=== PATIENT | female | born 1945 | race Caucasian/White ===

== ENCOUNTER 2017-11-06 15:18 | Inpatient (IN) | payer MEDICARE, OTHER, BC ==
[2017-11-06 20:21] LABS: AADO2 Arterial 60.1 mmHg (7.0-24.0); Arterial Base Excess -5.3 mmol/L (-3.0-3); Arterial Blood Gas Oxygen Sat 88.5 mmHG (95.0-100.0); Arterial COHb 0.3 % (0.0-3.0); Arterial Fraction of Oxyhgb 88.1 % (93.0-99.0); Arterial HCO3 18.7 mmol/L (22.0-26.0); Arterial MetHb 0.2 % (0.0-1.5); Arterial Total Hemglobin 10.1 g/dl (12.0-18.0); Arterial pCO2 31.2 mmhg (35-45); MODE ROOM AIR; Site Right Brachial
[2017-11-06] MEDS ORDERED: HYDROCODONE/APAP (5/325) TAB PO (21:00)
[2017-11-06] MEDS ORDERED: NACL 0.9% 3 ML SYG IV (21:00)
[2017-11-06] MEDS ORDERED: DOCUSATE SODIUM 100 MG CAP PO (21:00)
[2017-11-06 21:14] LABS: ABNORMAL IP MESSAGE 1; HEMATOCRIT 28.1 % (37.0-47.0); MEAN CORPUSCULAR HEMOGLOBIN 31.6 pg (29.0-33.0); MEAN CORPUSCULAR VOLUME 98.6 fl (82.0-101.0); MEAN PLATELET VOLUME 9.2 fl (7.4-10.4); NUCLEATED RED BLOOD CELLS% 0.6 /100WBC (0.0-0.0); PLATELET COUNT 311 10^3/UL (140-415); RED BLOOD COUNT 2.85 10^6/ul (4.20-5.40)
[2017-11-06 21:14] LABS: WHITE BLOOD COUNT 12.4 10^3/ul (4.8-10.8)
[2017-11-06 21:29] LABS: INR 1.01; PROTIME 13.4 Sec (11.9-14.9)
[2017-11-06 21:32] LABS: ALANINE AMINOTRANSFERASE 32 IU/L (13-69); ALBUMIN 3.5 g/dl (3.3-4.9); ALBUMIN/GLOBULIN RATIO 1.12; ALKALINE PHOSPHATASE 141 IU/L (42-121); ANION GAP 23 (8-16); ASPARTATE AMINO TRANSFERASE 40 IU/L (15-46); BILIRUBIN,INDIRECT 0.3 mg/dl (0-1.1); BILIRUBIN,TOTAL 0.3 mg/dl (0.2-1.3); BLOOD UREA NITROGEN 65 mg/dl (7-20); CALCIUM 8.8 mg/dl (8.4-10.2); CARBON DIOXIDE 19 mmol/L (21-31); CHLORIDE 104 mmol/L (97-110); CREATININE 2.09 mg/dl (0.44-1.00); GLUCOSE 277 mg/dl (70-220); LIPASE 187 U/L (23-300); POTASSIUM 4.2 mmol/L (3.5-5.1); TOTAL PROTEIN 6.6 g/dl (6.1-8.1)
[2017-11-06 21:35] LABS: POSITIVE DIFF @See below; SODIUM 142 mmol/L (135-144)
[2017-11-06 21:36] LABS: ADD MAN DIFF? YES
[2017-11-06 21:44] LABS: B-TYPE NATRIURETIC PEPTIDE 18600 PG/ML (0-125)
[2017-11-06 21:53] LABS: TROPONIN-I 0.288 ng/ml (0.00-0.12)
[2017-11-06 21:55] LABS: ADD UMIC NO; UR ASCORBIC ACID NEGATIVE (NEGATIVE); UR BILIRUBIN (Dip) NEGATIVE (NEGATIVE); UR BLOOD (Dip) NEGATIVE (NEGATIVE); UR CLARITY CLEAR (CLEAR); UR COLOR YELLOW (YELLOW); UR GLUCOSE (Dip) 1+ mg/dL (NEGATIVE); UR KETONES (Dip) TRACE mg/dL (NEGATIVE); UR LEUKOCYTE ESTERASE (Dip) NEGATIVE Leu/ul (NEGATIVE); UR NITRITE (Dip) NEGATIVE (NEGATIVE); UR SPECIFIC GRAVITY (Dip) 1.012 (1.003-1.030); UR TOTAL PROTEIN (Dip) NEGATIVE (NEGATIVE); UR UROBILINOGEN (Dip) NEGATIVE (NEGATIVE)
[2017-11-06 21:57] LABS: BAND NEUTROPHILS #M 0.1 10^3/ul (0.0-0.6); BAND NEUTROPHILS % (M) 1 % (0-4); BASOPHIL #M 0.1 10^3/ul (0.0-0.0); BASOPHILS % (M) 1 % (0-2); EOSINOPHILS % (M) 3 % (0-7); ERYTHROBLAST% (NRBC) (M) 1 % (0-0); GIANT THROMBO% (M) 1 % (0-0); LYMPHOCYTES #M 1.6 10^3/ul (0.8-2.9); LYMPHOCYTES % (M) 13 % (15-51); MONOCYTE #M 0.4 10^3/ul (0.3-0.9); MONOCYTES % (M) 4 % (0-11); PLATELET ESTIMATE NORMAL; POLYCHROMASIA 2+ (0-0); SEG NEUT #M 9.7 10^3/ul (1.7-7.5); SEGMENTED NEUTROPHILS (M) % 78 % (39-77)
[2017-11-06] MEDS ORDERED: DEXTROSE 50% 50 ML SYRINGE IV ×2 (22:00)
[2017-11-06] MEDS ORDERED: GLUCAGON 1 MG INJ IM (22:00)
[2017-11-06] MEDS ORDERED: GLUCOSE GEL 15 GRAM TUBE BUCCAL (22:00)
[2017-11-06] MEDS ORDERED: GLUCOSE GEL 15 GRAM TUBE PO ×2 (22:00)
[2017-11-06 23:17] LABS: THYROID STIMULATING HORMONE 0.684 MIU/L (0.465-4.680)
[2017-11-06] MEDS: ASPIRIN 81 MG TAB PO (23:37)
[2017-11-06] MEDS: FUROSEMIDE 40 MG INJ IV (23:38)
[2017-11-06] MEDS: AMLODIPINE 5 MG TAB PO (23:38)
[2017-11-06] MEDS: HEPARIN 5,000 UNIT/0.5 ML VIAL SC (23:41)
[2017-11-07] MEDS: POTASSIUM CHLORIDE (SR) 10 MEQ TAB PO (01:03)
[2017-11-07] MEDS: ACCU-CHEK XX (01:59)
[2017-11-07] MEDS: PANTOPRAZOLE (EC) 40 MG TAB PO (05:33)
[2017-11-07] MEDS: HEPARIN 5,000 UNIT/0.5 ML VIAL SC ×3 (05:38→21:45)
[2017-11-07 06:53] LABS: ADD MAN DIFF? NO
[2017-11-07 06:57] LABS: WHITE BLOOD COUNT 10.4 10^3/ul (4.8-10.8)
[2017-11-07 06:57] LABS: ABNORMAL IP MESSAGE 1; BASOPHIL # 0.1 10^3/ul (0.0-0.1); BASOPHILS % 0.8 % (0.0-2.0); EOSINOPHILS # 0.4 10^3/ul (0.0-0.5); HEMATOCRIT 26.9 % (37.0-47.0); HEMOGLOBIN 8.7 g/dl (12.0-16.0); LYMPHOCYTES % 9.4 % (15.0-51.0); MEAN CORPUSCULAR HEMOGLOBIN 31.6 pg (29.0-33.0); MEAN CORPUSCULAR HGB CONC 32.3 g/dl (32.0-37.0); MEAN CORPUSCULAR VOLUME 97.8 fl (82.0-101.0); MONOCYTE # 0.7 10^3/ul (0.3-0.9); MONOCYTES % 6.6 % (0.0-11.0); NEUTROPHIL # 7.6 10^3/ul (1.6-7.5); NEUTROPHILS % 73.4 % (39.0-77.0); NUCLEATED RED BLOOD CELLS # 0.1 10^3/ul (0.0-0.0); NUCLEATED RED BLOOD CELLS% 0.8 /100WBC (0.0-0.0); PLATELET COUNT 289 10^3/UL (140-415); RED BLOOD COUNT 2.75 10^6/ul (4.20-5.40); RED CELL DISTRIBUTION WIDTH 15.3 % (11.5-14.5)
[2017-11-07 07:05] LABS: POSITIVE DIFF @See below
[2017-11-07] MEDS: LEVOTHYROXINE 75 MCG TAB PO (07:17)
[2017-11-07 07:19] LABS: ANION GAP 19 (8-16); BLOOD UREA NITROGEN 63 mg/dl (7-20); CALCIUM 8.8 mg/dl (8.4-10.2); CARBON DIOXIDE 24 mmol/L (21-31); CHLORIDE 105 mmol/L (97-110); CREATININE 2.05 mg/dl (0.44-1.00); GLUCOSE 220 mg/dl (70-220); MAGNESIUM 2.3 mg/dl (1.7-2.5); PHOSPHORUS 3.3 mg/dl (2.5-4.9); POTASSIUM 4.1 mmol/L (3.5-5.1); SODIUM 144 mmol/L (135-144)
[2017-11-07 07:24] LABS: IRON 41 ug/dl (35-150)
[2017-11-07 07:31] LABS: TROPONIN-I 0.269 ng/ml (0.00-0.12)
[2017-11-07 07:33] LABS: % IRON SATURATION 17 % SAT (22-52); TOTAL IRON BINDING CAPACITY 239 ug/dl (241-421)
[2017-11-07 08:12] LABS: HEMOGLOBIN A1C 7.8 % (0-5.9)
[2017-11-07] MEDS: INSULIN ASPART [NOVOLOG] 3 ML PEN SC ×3 (08:17→17:11)
[2017-11-07] MEDS: LINAGLIPTIN 5 MG TABLET PO (08:18)
[2017-11-07] MEDS: AMLODIPINE 5 MG TAB PO ×2 (08:18→20:20)
[2017-11-07] MEDS ORDERED: FUROSEMIDE 100 MG INJ IV (10:30)
[2017-11-07] MEDS: SOD FERRIC GLUC COMPLX 125 MG in SOD CHLORIDE 0.9% 100 ML IVPB (11:48)
[2017-11-07] MEDS: POTASSIUM CHLORIDE (SR) 20 MEQ TAB PO ×2 (11:48→20:19)
[2017-11-07] MEDS: INSULIN GLARGINE [LANtus] 3 ML PEN SC ×2 (14:47→23:50)
[2017-11-07] MEDS: EPOETIN 10000 UNITS/ML (NON ESRD/NON ONCOLOGY) SC (16:18)
[2017-11-07] MEDS ORDERED: EPOETIN 10000 UNITS/ML (NON ESRD/NON ONCOLOGY) SC (17:00)
[2017-11-07] MEDS: FUROSEMIDE 40 MG INJ IV (17:10)
[2017-11-07] MEDS: ATORVASTATIN 10 MG TAB PO (20:19)
[2017-11-07] MEDS: NEOMYC/POLYMYX/BACIT 30 GM OINT TOP (21:44)
[2017-11-07] MEDS ORDERED: PENDING SANTYL ORDER FOR WOUND CARE XX (22:00)
[2017-11-07] MEDS ORDERED: INSULIN GLARGINE [LANtus] 3 ML PEN SC (23:50)
[2017-11-08 00:27] LABS: CREATININE,URINE RANDOM 96.81 mg/dl (20-320); PROTEIN/CREAT RATIO 0.16 RATIO
[2017-11-08] MEDS: ACCU-CHEK XX (02:00)
[2017-11-08] MEDS: LEVOTHYROXINE 75 MCG TAB PO (06:25)
[2017-11-08] MEDS: PANTOPRAZOLE (EC) 40 MG TAB PO (06:25)
[2017-11-08] MEDS: FUROSEMIDE 40 MG INJ IV ×2 (06:26→17:34)
[2017-11-08] MEDS: HEPARIN 5,000 UNIT/0.5 ML VIAL SC ×3 (06:39→21:18)
[2017-11-08 07:58] LABS: ADD MAN DIFF? NO
[2017-11-08] MEDS: INSULIN ASPART [NOVOLOG] 3 ML PEN SC ×4 (08:02→23:24)
[2017-11-08 08:17] LABS: WHITE BLOOD COUNT 12.3 10^3/ul (4.8-10.8)
[2017-11-08 08:17] LABS: BASOPHIL # 0.1 10^3/ul (0.0-0.1); BASOPHILS % 0.6 % (0.0-2.0); EOSINOPHILS # 0.3 10^3/ul (0.0-0.5); EOSINOPHILS % 2.4 % (0.0-7.0); HEMATOCRIT 28.2 % (37.0-47.0); HEMOGLOBIN 8.9 g/dl (12.0-16.0); LYMPHOCYTES # 1.4 10^3/ul (0.8-2.9); MEAN CORPUSCULAR HEMOGLOBIN 31.3 pg (29.0-33.0); MEAN CORPUSCULAR HGB CONC 31.6 g/dl (32.0-37.0); MEAN CORPUSCULAR VOLUME 99.3 fl (82.0-101.0); MEAN PLATELET VOLUME 9.6 fl (7.4-10.4); MONOCYTE # 0.9 10^3/ul (0.3-0.9); MONOCYTES % 7.3 % (0.0-11.0); NEUTROPHIL # 9.1 10^3/ul (1.6-7.5); NEUTROPHILS % 74.1 % (39.0-77.0); NUCLEATED RED BLOOD CELLS # 0.1 10^3/ul (0.0-0.0); NUCLEATED RED BLOOD CELLS% 0.5 /100WBC (0.0-0.0); PLATELET COUNT 330 10^3/UL (140-415); RED BLOOD COUNT 2.84 10^6/ul (4.20-5.40); RED CELL DISTRIBUTION WIDTH 16.2 % (11.5-14.5)
[2017-11-08 08:30] LABS: ANION GAP 14 (8-16); BLOOD UREA NITROGEN 71 mg/dl (7-20); CALCIUM 8.7 mg/dl (8.4-10.2); CARBON DIOXIDE 28 mmol/L (21-31); CHLORIDE 104 mmol/L (97-110); CREATININE 2.14 mg/dl (0.44-1.00); GLUCOSE 155 mg/dl (70-220); MAGNESIUM 2.1 mg/dl (1.7-2.5); PHOSPHORUS 3.1 mg/dl (2.5-4.9); POTASSIUM 4.7 mmol/L (3.5-5.1); SODIUM 141 mmol/L (135-144)
[2017-11-08] MEDS: AMLODIPINE 5 MG TAB PO ×2 (08:53→21:15)
[2017-11-08] MEDS: POTASSIUM CHLORIDE (SR) 20 MEQ TAB PO ×2 (08:54→21:15)
[2017-11-08] MEDS: LINAGLIPTIN 5 MG TABLET PO (08:54)
[2017-11-08] MEDS: ASPIRIN 81 MG TAB PO (08:55)
[2017-11-08 10:11] LABS: OCCULT BLOOD STOOL NEGATIVE (NEGATIVE)
[2017-11-08] MEDS: NEOMYC/POLYMYX/BACIT 30 GM OINT TOP (10:19)
[2017-11-08] MEDS: SOD FERRIC GLUC COMPLX 125 MG in SOD CHLORIDE 0.9% 100 ML IVPB (10:20)
[2017-11-08 15:34] LABS: B-TYPE NATRIURETIC PEPTIDE 12500 PG/ML (0-125)
[2017-11-08 16:41] LABS: OCCULT BLOOD STOOL NEGATIVE (NEGATIVE)
[2017-11-08] MEDS: ATORVASTATIN 10 MG TAB PO (21:19)
[2017-11-08] MEDS: INSULIN GLARGINE [LANtus] 3 ML PEN SC (21:56)
[2017-11-09] MEDS: ACCU-CHEK XX (02:51)
[2017-11-09] MEDS: FUROSEMIDE 40 MG INJ IV ×2 (06:27→17:51)
[2017-11-09] MEDS: LEVOTHYROXINE 75 MCG TAB PO (06:27)
[2017-11-09] MEDS: PANTOPRAZOLE (EC) 40 MG TAB PO (06:27)
[2017-11-09] MEDS: HEPARIN 5,000 UNIT/0.5 ML VIAL SC ×3 (06:41→21:41)
[2017-11-09] MEDS: INSULIN ASPART [NOVOLOG] 3 ML PEN SC ×4 (07:53→21:37)
[2017-11-09 07:55] LABS: ABNORMAL IP MESSAGE 1; HEMATOCRIT 27.1 % (37.0-47.0); HEMOGLOBIN 8.7 g/dl (12.0-16.0); MEAN CORPUSCULAR HEMOGLOBIN 31.8 pg (29.0-33.0); MEAN CORPUSCULAR HGB CONC 32.1 g/dl (32.0-37.0); MEAN CORPUSCULAR VOLUME 98.9 fl (82.0-101.0); MEAN PLATELET VOLUME 9.8 fl (7.4-10.4); NUCLEATED RED BLOOD CELLS% 0.6 /100WBC (0.0-0.0); PLATELET COUNT 331 10^3/UL (140-415); RED BLOOD COUNT 2.74 10^6/ul (4.20-5.40); RED CELL DISTRIBUTION WIDTH 16.4 % (11.5-14.5)
[2017-11-09 07:55] LABS: WHITE BLOOD COUNT 11.3 10^3/ul (4.8-10.8)
[2017-11-09 08:03] LABS: ADD MAN DIFF? YES; POSITIVE DIFF @See below
[2017-11-09 08:43] LABS: ALANINE AMINOTRANSFERASE 38 IU/L (13-69); ALBUMIN 3.2 g/dl (3.3-4.9); ALBUMIN/GLOBULIN RATIO 1.18; ALKALINE PHOSPHATASE 117 IU/L (42-121); ANION GAP 15 (8-16); ASPARTATE AMINO TRANSFERASE 33 IU/L (15-46); BILIRUBIN,INDIRECT 0.2 mg/dl (0-1.1); BILIRUBIN,TOTAL 0.2 mg/dl (0.2-1.3); BLOOD UREA NITROGEN 71 mg/dl (7-20); CALCIUM 8.3 mg/dl (8.4-10.2); CARBON DIOXIDE 27 mmol/L (21-31); CHLORIDE 101 mmol/L (97-110); CREATININE 2.13 mg/dl (0.44-1.00); GLUCOSE 183 mg/dl (70-220); POTASSIUM 4.4 mmol/L (3.5-5.1); SODIUM 139 mmol/L (135-144); TOTAL PROTEIN 5.9 g/dl (6.1-8.1)
[2017-11-09 08:52] LABS: MAGNESIUM 1.9 mg/dl (1.7-2.5)
[2017-11-09 08:52] LABS: PHOSPHORUS 3.7 mg/dl (2.5-4.9)
[2017-11-09 08:53] LABS: ALANINE AMINOTRANSFERASE 35 IU/L (13-69); ALBUMIN 2.9 g/dl (3.3-4.9); ALKALINE PHOSPHATASE 109 IU/L (42-121); ASPARTATE AMINO TRANSFERASE 33 IU/L (15-46); TOTAL PROTEIN 5.6 g/dl (6.1-8.1)
[2017-11-09] MEDS: ASPIRIN 81 MG TAB PO (09:04)
[2017-11-09] MEDS: NEOMYC/POLYMYX/BACIT 30 GM OINT TOP (09:04)
[2017-11-09] MEDS: LINAGLIPTIN 5 MG TABLET PO (09:04)
[2017-11-09] MEDS: POTASSIUM CHLORIDE (SR) 20 MEQ TAB PO (09:05)
[2017-11-09] MEDS: AMLODIPINE 5 MG TAB PO ×2 (09:05→21:31)
[2017-11-09 10:10] LABS: ANISOCYTOSIS 1+ (0-0); BAND NEUTROPHILS #M 0.5 10^3/ul (0.0-0.6); BAND NEUTROPHILS % (M) 5 % (0-4); EOSINOPHILS % (M) 3 % (0-7); LYMPHOCYTES #M 1.3 10^3/ul (0.8-2.9); LYMPHOCYTES % (M) 12 % (15-51); MONOCYTE #M 0.4 10^3/ul (0.3-0.9); MONOCYTES % (M) 4 % (0-11); MYELOCYTES #M 0.2 10^3/ul (0.0-0.0); MYELOCYTES % (M) 2 % (0-0); PLATELET ESTIMATE NORMAL; POLYCHROMASIA 1+ (0-0); SEG NEUT #M 8.4 10^3/ul (1.7-7.5); SEGMENTED NEUTROPHILS (M) % 74 % (39-77); SMUDGE%M 5 % (0-0)
[2017-11-09] MEDS: SOD FERRIC GLUC COMPLX 125 MG in SOD CHLORIDE 0.9% 100 ML IVPB (10:42)
[2017-11-09] MEDS: ATORVASTATIN 10 MG TAB PO (21:31)
[2017-11-09] MEDS: INSULIN GLARGINE [LANtus] 3 ML PEN SC (21:36)
[2017-11-10] MEDS: ACCU-CHEK XX (02:00)
[2017-11-10] MEDS: PANTOPRAZOLE (EC) 40 MG TAB PO (06:30)
[2017-11-10] MEDS: LEVOTHYROXINE 75 MCG TAB PO (06:30)
[2017-11-10] MEDS: FUROSEMIDE 40 MG INJ IV ×2 (06:30→17:27)
[2017-11-10] MEDS: HEPARIN 5,000 UNIT/0.5 ML VIAL SC ×3 (06:36→22:20)
[2017-11-10 06:55] LABS: ABNORMAL IP MESSAGE 1; HEMOGLOBIN 9.1 g/dl (12.0-16.0); MEAN CORPUSCULAR HEMOGLOBIN 32.3 pg (29.0-33.0); MEAN CORPUSCULAR HGB CONC 32.5 g/dl (32.0-37.0); MEAN CORPUSCULAR VOLUME 99.3 fl (82.0-101.0); MEAN PLATELET VOLUME 9.5 fl (7.4-10.4); NUCLEATED RED BLOOD CELLS% 0.6 /100WBC (0.0-0.0); PLATELET COUNT 320 10^3/UL (140-415); RED BLOOD COUNT 2.82 10^6/ul (4.20-5.40); RED CELL DISTRIBUTION WIDTH 16.9 % (11.5-14.5)
[2017-11-10 06:55] LABS: WHITE BLOOD COUNT 9.5 10^3/ul (4.8-10.8)
[2017-11-10 07:13] LABS: POSITIVE DIFF @See below
[2017-11-10 07:14] LABS: ADD MAN DIFF? YES
[2017-11-10] MEDS: INSULIN ASPART [NOVOLOG] 3 ML PEN SC ×4 (07:25→20:20)
[2017-11-10 07:37] LABS: B-TYPE NATRIURETIC PEPTIDE 7820 PG/ML (0-125)
[2017-11-10 07:55] LABS: ALANINE AMINOTRANSFERASE 35 IU/L (13-69); ALBUMIN 3.1 g/dl (3.3-4.9); ALBUMIN/GLOBULIN RATIO 1.19; ALKALINE PHOSPHATASE 107 IU/L (42-121); ANION GAP 13 (8-16); ASPARTATE AMINO TRANSFERASE 24 IU/L (15-46); BILIRUBIN,INDIRECT 0.1 mg/dl (0-1.1); BILIRUBIN,TOTAL 0.1 mg/dl (0.2-1.3); BLOOD UREA NITROGEN 73 mg/dl (7-20); CALCIUM 8.6 mg/dl (8.4-10.2); CARBON DIOXIDE 30 mmol/L (21-31); CHLORIDE 101 mmol/L (97-110); CREATININE 2.23 mg/dl (0.44-1.00); GLUCOSE 140 mg/dl (70-220); POTASSIUM 4.6 mmol/L (3.5-5.1); SODIUM 139 mmol/L (135-144); TOTAL PROTEIN 5.7 g/dl (6.1-8.1)
[2017-11-10] MEDS: POTASSIUM CHLORIDE (SR) 20 MEQ TAB PO (08:53)
[2017-11-10] MEDS: AMLODIPINE 5 MG TAB PO ×2 (08:53→20:28)
[2017-11-10] MEDS: NEOMYC/POLYMYX/BACIT 30 GM OINT TOP (08:54)
[2017-11-10] MEDS: ASPIRIN 81 MG TAB PO (08:54)
[2017-11-10] MEDS: LINAGLIPTIN 5 MG TABLET PO (08:54)
[2017-11-10 09:40] LABS: ANISOCYTOSIS 1+ (0-0); BAND NEUTROPHILS #M 0.1 10^3/ul (0.0-0.6); BAND NEUTROPHILS % (M) 2 % (0-4); EOSINOPHILS % (M) 6 % (0-7); LYMPHOCYTES % (M) 11 % (15-51); MONOCYTE #M 0.6 10^3/ul (0.3-0.9); MONOCYTES % (M) 7 % (0-11); MYELOCYTES % (M) 1 % (0-0); PLATELET ESTIMATE NORMAL; POLYCHROMASIA 1+ (0-0); SEG NEUT #M 6.9 10^3/ul (1.7-7.5); SEGMENTED NEUTROPHILS (M) % 73 % (39-77)
[2017-11-10] MEDS: SOD FERRIC GLUC COMPLX 125 MG in SOD CHLORIDE 0.9% 100 ML IVPB (11:10)
[2017-11-10] MEDS: EPOETIN 10000 UNITS/ML (NON ESRD/NON ONCOLOGY) SC (17:28)
[2017-11-10] MEDS: INSULIN GLARGINE [LANtus] 3 ML PEN SC (20:20)
[2017-11-10] MEDS: ATORVASTATIN 10 MG TAB PO (20:22)
[2017-11-10] MEDS: ACETAMINOPHEN 325 MG TAB PO (22:11)
[2017-11-11] MEDS: ACCU-CHEK XX (02:31)
[2017-11-11] MEDS: PANTOPRAZOLE (EC) 40 MG TAB PO (05:46)
[2017-11-11] MEDS: HEPARIN 5,000 UNIT/0.5 ML VIAL SC ×3 (05:51→20:58)
[2017-11-11] MEDS: FUROSEMIDE 40 MG INJ IV (05:55)
[2017-11-11] MEDS: LEVOTHYROXINE 75 MCG TAB PO ×2 (06:07→08:21)
[2017-11-11 08:12] LABS: ADD MAN DIFF? NO
[2017-11-11 08:15] LABS: WHITE BLOOD COUNT 8.3 10^3/ul (4.8-10.8)
[2017-11-11 08:15] LABS: BASOPHIL # 0.1 10^3/ul (0.0-0.1); BASOPHILS % 0.6 % (0.0-2.0); EOSINOPHILS # 0.3 10^3/ul (0.0-0.5); EOSINOPHILS % 3.5 % (0.0-7.0); HEMATOCRIT 30.3 % (37.0-47.0); HEMOGLOBIN 9.6 g/dl (12.0-16.0); LYMPHOCYTES # 0.9 10^3/ul (0.8-2.9); LYMPHOCYTES % 10.5 % (15.0-51.0); MEAN CORPUSCULAR HEMOGLOBIN 31.8 pg (29.0-33.0); MEAN CORPUSCULAR HGB CONC 31.7 g/dl (32.0-37.0); MEAN CORPUSCULAR VOLUME 100.3 fl (82.0-101.0); MEAN PLATELET VOLUME 10.1 fl (7.4-10.4); MONOCYTE # 0.8 10^3/ul (0.3-0.9); MONOCYTES % 9.7 % (0.0-11.0); NEUTROPHIL # 5.9 10^3/ul (1.6-7.5); NEUTROPHILS % 71.1 % (39.0-77.0); NUCLEATED RED BLOOD CELLS% 0.4 /100WBC (0.0-0.0); PLATELET COUNT 333 10^3/UL (140-415); RED BLOOD COUNT 3.02 10^6/ul (4.20-5.40); RED CELL DISTRIBUTION WIDTH 17.9 % (11.5-14.5)
[2017-11-11] MEDS: LINAGLIPTIN 5 MG TABLET PO (08:21)
[2017-11-11] MEDS: ASPIRIN 81 MG TAB PO (08:21)
[2017-11-11] MEDS: AMLODIPINE 5 MG TAB PO ×2 (08:21→20:47)
[2017-11-11] MEDS: POTASSIUM CHLORIDE (SR) 20 MEQ TAB PO (08:21)
[2017-11-11] MEDS: INSULIN ASPART [NOVOLOG] 3 ML PEN SC ×4 (08:37→20:54)
[2017-11-11 08:46] LABS: B-TYPE NATRIURETIC PEPTIDE 5290 PG/ML (0-125)
[2017-11-11 08:55] LABS: ANION GAP 16 (8-16); BLOOD UREA NITROGEN 82 mg/dl (7-20); CARBON DIOXIDE 32 mmol/L (21-31); CHLORIDE 97 mmol/L (97-110); CREATININE 2.41 mg/dl (0.44-1.00); GLUCOSE 232 mg/dl (70-220); POTASSIUM 4.7 mmol/L (3.5-5.1); SODIUM 140 mmol/L (135-144)
[2017-11-11] MEDS: NEOMYC/POLYMYX/BACIT 30 GM OINT TOP (09:00)
[2017-11-11] MEDS: REGADENOSON 0.4 MG/5 ML SYG (09:35)
[2017-11-11] MEDS: SOD FERRIC GLUC COMPLX 125 MG in SOD CHLORIDE 0.9% 100 ML IVPB (11:29)
[2017-11-11] MEDS: ATORVASTATIN 10 MG TAB PO (20:47)
[2017-11-11] MEDS: INSULIN GLARGINE [LANtus] 3 ML PEN SC (20:50)
[2017-11-11] MEDS: ACETAMINOPHEN 325 MG TAB PO (22:32)
[2017-11-12] MEDS: ACCU-CHEK XX (02:00)
[2017-11-12] MEDS: PANTOPRAZOLE (EC) 40 MG TAB PO (05:30)
[2017-11-12] MEDS: HEPARIN 5,000 UNIT/0.5 ML VIAL SC ×3 (05:31→20:59)
[2017-11-12] MEDS: INSULIN ASPART [NOVOLOG] 3 ML PEN SC ×4 (07:25→20:58)
[2017-11-12 07:53] LABS: ADD MAN DIFF? NO
[2017-11-12 07:56] LABS: WHITE BLOOD COUNT 9.8 10^3/ul (4.8-10.8)
[2017-11-12 07:56] LABS: BASOPHIL # 0.1 10^3/ul (0.0-0.1); BASOPHILS % 0.5 % (0.0-2.0); EOSINOPHILS # 0.3 10^3/ul (0.0-0.5); EOSINOPHILS % 3.2 % (0.0-7.0); HEMATOCRIT 30.8 % (37.0-47.0); HEMOGLOBIN 9.9 g/dl (12.0-16.0); LYMPHOCYTES # 0.8 10^3/ul (0.8-2.9); MEAN CORPUSCULAR HEMOGLOBIN 32.2 pg (29.0-33.0); MEAN CORPUSCULAR HGB CONC 32.1 g/dl (32.0-37.0); MEAN CORPUSCULAR VOLUME 100.3 fl (82.0-101.0); MEAN PLATELET VOLUME 9.8 fl (7.4-10.4); MONOCYTES % 10.1 % (0.0-11.0); NEUTROPHIL # 7.5 10^3/ul (1.6-7.5); NEUTROPHILS % 76.4 % (39.0-77.0); NUCLEATED RED BLOOD CELLS% 0.2 /100WBC (0.0-0.0); PLATELET COUNT 321 10^3/UL (140-415); RED BLOOD COUNT 3.07 10^6/ul (4.20-5.40); RED CELL DISTRIBUTION WIDTH 18.6 % (11.5-14.5)
[2017-11-12 08:18] LABS: ALANINE AMINOTRANSFERASE 34 IU/L (13-69); ALBUMIN 3.5 g/dl (3.3-4.9); ALBUMIN/GLOBULIN RATIO 1.29; ALKALINE PHOSPHATASE 120 IU/L (42-121); ANION GAP 16 (8-16); ASPARTATE AMINO TRANSFERASE 29 IU/L (15-46); BILIRUBIN,INDIRECT 0.2 mg/dl (0-1.1); BILIRUBIN,TOTAL 0.2 mg/dl (0.2-1.3); BLOOD UREA NITROGEN 83 mg/dl (7-20); CALCIUM 8.9 mg/dl (8.4-10.2); CARBON DIOXIDE 32 mmol/L (21-31); CHLORIDE 98 mmol/L (97-110); CREATININE 2.68 mg/dl (0.44-1.00); GLUCOSE 87 mg/dl (70-220); POTASSIUM 5.1 mmol/L (3.5-5.1); SODIUM 141 mmol/L (135-144); TOTAL PROTEIN 6.2 g/dl (6.1-8.1)
[2017-11-12] MEDS: AMLODIPINE 5 MG TAB PO ×2 (08:28→20:59)
[2017-11-12] MEDS: FUROSEMIDE 40 MG TAB PO (08:28)
[2017-11-12] MEDS: LINAGLIPTIN 5 MG TABLET PO (08:28)
[2017-11-12] MEDS: LEVOTHYROXINE 75 MCG TAB PO (08:28)
[2017-11-12] MEDS: ASPIRIN 81 MG TAB PO (08:29)
[2017-11-12] MEDS: POTASSIUM CHLORIDE (SR) 20 MEQ TAB PO (08:29)
[2017-11-12] MEDS: NEOMYC/POLYMYX/BACIT 30 GM OINT TOP (08:29)
[2017-11-12] MEDS: ACETAMINOPHEN 325 MG TAB PO (10:37)
[2017-11-12 15:55] LABS: ADD UMIC YES; UR ASCORBIC ACID NEGATIVE (NEGATIVE); UR BACTERIA FEW /HPF (NONE SEEN); UR BILIRUBIN (Dip) NEGATIVE (NEGATIVE); UR BLOOD (Dip) 1+ mg/dL (NEGATIVE); UR CLARITY CLEAR (CLEAR); UR COLOR YELLOW (YELLOW); UR GLUCOSE (Dip) NEGATIVE (NEGATIVE); UR KETONES (Dip) NEGATIVE (NEGATIVE); UR LEUKOCYTE ESTERASE (Dip) NEGATIVE Leu/ul (NEGATIVE); UR MUCUS FEW /HPF (NONE SEEN); UR NITRITE (Dip) NEGATIVE (NEGATIVE); UR RBC 1 /HPF (0-5); UR SPECIFIC GRAVITY (Dip) 1.011 (1.003-1.030); UR TOTAL PROTEIN (Dip) NEGATIVE (NEGATIVE); UR UROBILINOGEN (Dip) NEGATIVE (NEGATIVE); UR WBC 5 /HPF (0-5)
[2017-11-12] MEDS: EPOETIN 10000 UNITS/ML (NON ESRD/NON ONCOLOGY) SC (17:45)
[2017-11-12] MEDS: INSULIN GLARGINE [LANtus] 3 ML PEN SC (20:56)
[2017-11-12] MEDS: ATORVASTATIN 10 MG TAB PO (20:59)
[2017-11-13] MEDS: ACCU-CHEK XX (02:27)
[2017-11-13] MEDS: PANTOPRAZOLE (EC) 40 MG TAB PO (05:52)
[2017-11-13] MEDS: HEPARIN 5,000 UNIT/0.5 ML VIAL SC ×3 (05:54→22:00)
[2017-11-13] MEDS: INSULIN ASPART [NOVOLOG] 3 ML PEN SC ×5 (07:25→21:25)
[2017-11-13 08:15] LABS: ADD MAN DIFF? NO
[2017-11-13 08:20] LABS: BASOPHIL # 0.1 10^3/ul (0.0-0.1); BASOPHILS % 0.6 % (0.0-2.0); EOSINOPHILS # 0.3 10^3/ul (0.0-0.5); EOSINOPHILS % 3.6 % (0.0-7.0); HEMATOCRIT 30.5 % (37.0-47.0); HEMOGLOBIN 9.7 g/dl (12.0-16.0); LYMPHOCYTES # 0.6 10^3/ul (0.8-2.9); LYMPHOCYTES % 7.6 % (15.0-51.0); MEAN CORPUSCULAR HEMOGLOBIN 31.9 pg (29.0-33.0); MEAN CORPUSCULAR HGB CONC 31.8 g/dl (32.0-37.0); MEAN CORPUSCULAR VOLUME 100.3 fl (82.0-101.0); MEAN PLATELET VOLUME 9.6 fl (7.4-10.4); MONOCYTE # 0.7 10^3/ul (0.3-0.9); MONOCYTES % 8.5 % (0.0-11.0); NEUTROPHIL # 6.3 10^3/ul (1.6-7.5); NEUTROPHILS % 78.5 % (39.0-77.0); PLATELET COUNT 295 10^3/UL (140-415); RED BLOOD COUNT 3.04 10^6/ul (4.20-5.40); RED CELL DISTRIBUTION WIDTH 18.1 % (11.5-14.5)
[2017-11-13] MEDS: POTASSIUM CHLORIDE (SR) 20 MEQ TAB PO (08:30)
[2017-11-13] MEDS: ASPIRIN 81 MG TAB PO (08:30)
[2017-11-13] MEDS: LINAGLIPTIN 5 MG TABLET PO (08:30)
[2017-11-13] MEDS: AMLODIPINE 5 MG TAB PO ×2 (08:30→21:16)
[2017-11-13] MEDS: NEOMYC/POLYMYX/BACIT 30 GM OINT TOP (08:35)
[2017-11-13 08:57] LABS: ALANINE AMINOTRANSFERASE 34 IU/L (13-69); ALBUMIN 3.4 g/dl (3.3-4.9); ALBUMIN/GLOBULIN RATIO 1.21; ALKALINE PHOSPHATASE 129 IU/L (42-121); ANION GAP 16 (8-16); ASPARTATE AMINO TRANSFERASE 25 IU/L (15-46); BILIRUBIN,INDIRECT 0.3 mg/dl (0-1.1); BILIRUBIN,TOTAL 0.3 mg/dl (0.2-1.3); BLOOD UREA NITROGEN 78 mg/dl (7-20); CALCIUM 8.5 mg/dl (8.4-10.2); CARBON DIOXIDE 31 mmol/L (21-31); CHLORIDE 96 mmol/L (97-110); CREATININE 2.31 mg/dl (0.44-1.00); GLUCOSE 328 mg/dl (70-220); POTASSIUM 5.2 mmol/L (3.5-5.1); SODIUM 138 mmol/L (135-144); TOTAL PROTEIN 6.2 g/dl (6.1-8.1)
[2017-11-13] MEDS: FUROSEMIDE 40 MG TAB PO (13:58)
[2017-11-13] MEDS: ATORVASTATIN 10 MG TAB PO (21:16)
[2017-11-13] MEDS: INSULIN GLARGINE [LANtus] 3 ML PEN SC (21:22)
[2017-11-13] MEDS: ONDANSETRON 4 MG INJ IV (21:49)
[2017-11-14] MEDS: ACCU-CHEK XX (01:45)
[2017-11-14] MEDS: ONDANSETRON 4 MG INJ IV (05:05)
[2017-11-14] MEDS: PANTOPRAZOLE (EC) 40 MG TAB PO (05:05)
[2017-11-14] MEDS: HEPARIN 5,000 UNIT/0.5 ML VIAL SC ×2 (05:06→14:39)
[2017-11-14] MEDS: INSULIN ASPART [NOVOLOG] 3 ML PEN SC ×4 (07:51→12:37)
[2017-11-14] MEDS: LEVOTHYROXINE 75 MCG TAB PO (08:39)
[2017-11-14] MEDS: ASPIRIN 81 MG TAB PO (08:39)
[2017-11-14] MEDS: FUROSEMIDE 40 MG TAB PO (08:40)
[2017-11-14] MEDS: LINAGLIPTIN 5 MG TABLET PO (08:40)
[2017-11-14] MEDS: AMLODIPINE 5 MG TAB PO (08:40)
[2017-11-14] MEDS: NEOMYC/POLYMYX/BACIT 30 GM OINT TOP (08:43)
[2017-11-14] MEDS ORDERED: INSULIN ASPART [NOVOLOG] 3 ML PEN SC ×2 (17:25)
[2017-11-14] MEDS ORDERED: INSULIN GLARGINE [LANtus] 3 ML PEN SC ×2 (20:00)
== END 2017-11-14 17:30 | DRG 291 ==
LOC: TEL 22:04 → E/R 15:18 → TEL 20:17
DX: I13.0 Hypertensive heart and chronic kidney disease with heart failure and stage 1 through stage 4 chronic kidney disease, or unspecified chronic kidney disease (principal); I50.33 Acute on chronic diastolic (congestive) heart failure; N17.9 Acute kidney failure, unspecified; R06.00 Dyspnea, unspecified; E11.22 Type 2 diabetes mellitus with diabetic chronic kidney disease; I27.20 Pulmonary hypertension, unspecified; E78.5 Hyperlipidemia, unspecified; I35.0 Nonrheumatic aortic (valve) stenosis; D63.1 Anemia in chronic kidney disease; N18.3 Chronic kidney disease, stage 3 (moderate); R60.0 Localized edema; S80.822A Blister (nonthermal), left lower leg, initial encounter; X58.XXXA Exposure to other specified factors, initial encounter; Y92.9 Unspecified place or not applicable; V89.2XXA Person injured in unspecified motor-vehicle accident, traffic, initial encounter; S22.39XD Fracture of one rib, unspecified side, subsequent encounter for fracture with routine healing; S62.643D Nondisplaced fracture of proximal phalanx of left middle finger, subsequent encounter for fracture with routine healing; S62.645D Nondisplaced fracture of proximal phalanx of left ring finger, subsequent encounter for fracture with routine healing
CPT/HCPCS: 36415; 36600; 71010; 73090; 73130-LT; 78452; 78582; 80048; 80053; 80076; 81001; 81003; 82270; 82570; 82607; 82728; 82803; 82962; 83036; 83540; 83690; 83735; 83880; 84100; 84443; 84484; 85025; 85610; 87081; 87086; 87400; 93005; 93017; 93306; 93880; 93970; 97110; 97116; 97530; 99291-25